=== PATIENT | male | born 1980 | race Caucasian/White ===

== ENCOUNTER 2023-02-26 04:58 | Emergency (ER) | payer OTHER, SELFPAY ==
[2023-02-26 05:01] VITALS: BP 137/86; PULSE 82; RESP 16; TEMP 36.4; O2SAT 95; BMI 33.9
--- NOTE | 2023-02-26 05:15 | ED_ITS ---
HPI - Back Pain/Injury General Chief Complaint: Back Pain/Injury Stated Complaint: BACK PAIN Time Seen by Provider: 02/26/23 05:15 History of Present Illness HPI Narrative: Patient presents to emergency department complaining of right lower back pain. Patient states he started having pain yesterday and is worse when he moves. He denies any fever, chills, cough, chest pain, shortness of breath. He denies any trauma. He denies any paresthesias, or weakness. He denies any saddle anesthe harshil. He denies any urinary, bowel incontinence, or retention. Patient states he took Advil has not had any relief. She does not radiate to his abdomen. He denies any hematuria, dysuria. Related Data Previous Rx's Medication Instructions Recorded cyclobenzaprine 10 mg tablet 10 mg PO TID PRN muscle spasm 3 02/26/23 days #14 tabs ketorolac 10 mg tablet 10 mg PO Q8H PRN pain #14 tabs 02/26/23 Allergies Allergy/AdvReac Type Severity Reaction Status Date / Time aspirin Allergy Unknown Verified 02/26/23 05:05 Review of Systems ROS Status of ROS 10 or more systems reviewed and unremarkable except as noted in history and below PFSH PFS Social History Smoking status: Current every day smoker Exam Narrative Exam Narrative: Nurses notes and vital signs reviewed and patient is not hypoxic. General: Nontoxic, Well-appearing and in no apparent distress. Skin: Warm, dry, no pallor noted. No Rash Head: Normocephalic, atraumatic. Neck: Supple, non-tender. Eye: Pupils are equal, round and EOMI. No scleral icterus. Ears, Nose, Mouth, and Throat: TM clear, no posterior oropharynx erythema or nasal mucosal hypertrophy, uvula is mid-line Oral mucosa is moist Cardiovascular: Regular Rate and Rhythm without murmur, gallop or rub. Respiratory: No accessory muscle use or respiratory distress. Lungs are clear to auscultation, no wheezing, rales or rhonchi Chest Wall: no tenderness Back: No midline thoracic or lumbar vertebral tenderness. There is to palpation to the left lower lumbosacral junction sacroiliac junction. There is no erythema, ecchymosis, signs of trauma, infection.No CVA tenderness Musculoskeletal: normal ROM, no calf or popliteal tenderness, no lower extremity edema/swelling GI: Abdomen is soft, non-distended. Normal bowel sounds. No masses appreciated. No tenderness to palpation. No rebound, guarding, or rigidity noted. Neurological: A&O x4. No cranial nerve dysfunction observed. No truncal ataxia. Moves all extremities. Sensation intact. Psychiatric: Cooperative and interactive. Normal mood and affect. Constitutional Vital Signs, click to edit/add: Last Vital Signs Temp 97.6 F 02/26/23 05:01 Pulse 82 02/26/23 05:01 Resp 16 02/26/23 05:01 BP 137/86 H 02/26/23 05:01 Pulse Ox 95 02/26/23 05:01 O2 Del Method Room Air 02/26/23 05:01 Course Vital Signs Vital signs: Vital Signs Temperature 97.6 F 02/26/23 05:01 Pulse Rate 82 02/26/23 05:01 Respiratory Rate 16 02/26/23 05:01 Blood Pressure 137/86 H 02/26/23 05:01 Pulse Oximetry 95 02/26/23 05:01 Oxygen Delivery Method Room Air 02/26/23 05:01 Temperature 97.6 F 02/26/23 05:01 Pulse Rate 82 02/26/23 05:01 Respiratory Rate 16 02/26/23 05:01 Blood Pressure 137/86 H 02/26/23 05:01 Pulse Oximetry 95 02/26/23 05:01 Oxygen Delivery Method Room Air 02/26/23 05:01 MDM - Back Pain/Injury MDM Narrative Medical decision making narrative: Atraumatic low back pain. Sacroiliac Region. Patient Was Given Norflex, and Portal I Am Which Helped Relieve His Symptoms. There were no signs of cord compression. No clinical indication for radiologic studies at this time. At this time the patient is without objective evidence of an acute process requiring hospitalization or inpatient management. The patient has remained hemodynamically stable. No additional indication for emergent studies at this time. I answered all questions. Discussed discharge instructions including standard anticipatory guidance and what should prompt a return to the emergency department, including if they get worse are not getting better or develops any new or concerning symptoms. I've given them specific time frame in which to follow-up, and who to follow-up with. The patient demonstrates understanding. Patient is nontoxic and stable for discharge with outpatient follow-up. This note was created with the assistance of a speech recognition program. Although the intention is to generate documents that actually reflects the content of the visit, no guarantees can be provided that every mistake has been identified and corrected by editing. Lab Data Labs: Lab Results 02/26/23 Range/Units 05:10 Urine Color Lt. yellow (YELLOW) Urine Clarity Clear (CLEAR) Urine pH 7.0 (5.0-9.0) Ur Specific [place] 1.015 (1.005-1.025) Urine Protein Negative (NEG/TRACE) mg/dL Urine Glucose (UA) Negative (NEGATIVE) mg/dL Urine Ketones Negative (NEGATIVE) mg/dL Urine Occult Blood Negative (NEGATIVE) Urine Nitrite Negative (NEGATIVE) Urine Bilirubin Negative (NEGATIVE) Urine Urobilinogen 0.2 (0.2-1.0) EU/dL Ur Leukocyte Esterase Negative (NEGATIVE) Discharge Plan Discharge Chief Complaint: Back Pain/Injury Clinical Impression: Strain of lumbar region Patient Disposition: Home, Self-Care Time of Disposition Decision: 05:35 Condition: Good Mode of Transportation: Private Vehicle Prescriptions / Home Meds: New cyclobenzaprine 10 mg tablet 10 mg PO TID PRN (Reason: muscle spasm) 3 Days Qty: 14 0RF ketorolac 10 mg tablet 10 mg PO Q8H PRN (Reason: pain) Qty: 14 0RF Instructions: Low Back Strain (ED) Stand Alone Forms: Portal Instructions Referrals: OMARI BALDWIN APRN [Physician] - 1 week Physician,Non-Staff, [Primary Care Provider] - 1 week
[2023-02-26 05:21] LABS: Bilirubin Urine NEGATIVE (NEGATIVE); Blood Urine NEGATIVE (NEGATIVE); Clarity Urine CLEAR (CLEAR); Color Urine LT. YELLOW (YELLOW); Glucose Urine UA NEGATIVE (NEGATIVE); Ketones Urine NEGATIVE (NEGATIVE); Leukocyte Esterase Urine NEGATIVE (NEGATIVE); Nitrite Urine NEGATIVE (NEGATIVE); Protein Urine NEGATIVE (NEG/TRACE); Specific Gravity Urine 1.015 (1.005-1.025); Urobilinogen Urine 0.2 EU/dL (0.2-1.0)
[2023-02-26 05:25] LABS: Urine Microscopic Indicated NO
[2023-02-26] MEDS: KETOROLAC TROMETHAMINE 60 MG/2 ML VIAL IM (05:54)
[2023-02-26] MEDS: ORPHENADRINE 60 MG/ 2 ML VIAL IM (05:54)
== END 2023-02-26 06:13 | disposition home or self-care (01) ==
PROVIDERS: Emergency Provider Emergency Medicine
DX: S39.012A Strain of muscle, fascia and tendon of lower back, initial encounter (principal); X58.XXXA Exposure to other specified factors, initial encounter; F17.210 Nicotine dependence, cigarettes, uncomplicated
CPT/HCPCS: 81003; 96372; 99284